=== PATIENT | male | born 1955 | race Caucasian/White ===

== ENCOUNTER 2016-09-16 09:49 | Emergency (ER) | payer BC ==
[~2016-09-16] VITALS: Ht 188 cm; Wt 113.6 kg
[~2016-09-16 09:49] MED LIST: ADVIL200 MG PO; ANTIVERT 25MG25 MG PO; ASPIRIN 32325 MG/TAB PO; CIPRO 500MG TA500 MG PO; COMPAZINE 110 MG/TAB PO; COUGH DROPS PO; DIABETA 5MG5 MG/TAB PO; FLONASE NASAL S16 GM NS; FORT1000TA PO; GLUCOPHAGE XR500 M1 PO; LANTUS100 U/ML; LEVEMIR FLEXPEN SQ; LEVEMIR100 U/ML SQ; LYRICA 50MG CAP50 MG PO; NEURONTIN100 MG/CAP PO; NOVOLOG 100U100 U/M1 SQ; PLAVIX 75MG TAB75 MG PO; PLETAL 100MG T100 MG PO; SEPTRA DS 8001 TAB PO; TUMS500 MG PO; ZESTRIL 10MG10 MG PO; ZOCOR 40MG40 MG PO; [UNRECOGNIZED DRUG - REMARK] PO
[2016-09-16 09:52] VITALS: TEMP 98.5
[2016-09-16] MEDS ORDERED: NORCO 325 MG-51 TAB PO (11:00)
[2016-09-16 11:18] VITALS: BP 162/81; PULSE 67
[2016-09-17] MEDS ORDERED: ASPIRIN 81M81 MG/TA2 PO (01:24)
[2016-09-17] MEDS ORDERED: CARDENE 20MG CA20 M1 PO (01:24)
[2016-09-17] MEDS ORDERED: TRESIBA FL200 UNIT/1 SQ (01:26)
[2016-09-17] MEDS ORDERED: FLOMAX 0.40.4 MG/CAP PO (01:26)
[2016-09-17] MEDS ORDERED: FLEXERIL 1010 MG/TAB PO (01:27)
[2016-09-17] MEDS ORDERED: AMOXICILLIN 8751 TAB PO (01:28)
== END 2016-09-16 11:28 | disposition home or self-care (01) ==
LOC: COL.ER 09:49
DX: R07.81 Pleurodynia (principal)

== ENCOUNTER 2016-09-17 00:09 | Emergency (ER) | payer BC ==
[~2016-09-17] VITALS: Ht 188 cm; Wt 113.6 kg
[~2016-09-17 00:09] MED LIST changes: +NORCO 325 MG-51 TAB PO
[2016-09-17 00:14] VITALS: TEMP 97.9
[2016-09-17 01:16] LABS: BASO # 0.1 (0.0-0.2); BASO % 0.6 % (0.0-2.0); EOS # 0.2 (0.0-0.7); EOS % 1.5 % (0-4.0); GRAN # 9.5 (1.4-6.5); GRAN % 79.8 % (42.2-75.2); HEMATOCRIT 41.7 % (42.0-52.0); HEMOGLOBIN 14.2 g/dl (13.5-18.0); LYMPH # 1.3 (1.2-3.4); LYMPH % 11.1 % (20.0-51.0); MEAN CELL VOLUME 87 fl (80.0-100.0); MEAN CORPUSCULAR HEMOGLOBIN 30 pg (27.0-31.0); MEAN CORPUSCULAR HGB CONC 34 g/dl (33.0-37.0); MEAN PLATELET VOLUME 9.5 fl (7.4-10.4); MONO # 0.8 (0.1-0.6); MONO % 6.7 % (1.7-9.3); PLATELET COUNT 345 K/mm3 (130-400); RED BLOOD COUNT 4.82 M/mm3 (4.20-5.60); REDCELL DISTRIBUTION WIDTH-CV 13.6 % (11.5-14.5); WHITE BLOOD COUNT 11.8 K/mm3 (4.8-10.8)
[2016-09-17] MEDS ORDERED: CARDENE 20MG CA20 M1 PO (01:24)
[2016-09-17] MEDS ORDERED: ASPIRIN 81M81 MG/TA2 PO (01:24)
[2016-09-17] MEDS ORDERED: TRESIBA FL200 UNIT/1 SQ (01:26)
[2016-09-17] MEDS ORDERED: FLOMAX 0.40.4 MG/CAP PO (01:26)
[2016-09-17] MEDS ORDERED: FLEXERIL 1010 MG/TAB PO (01:27)
[2016-09-17] MEDS ORDERED: AMOXICILLIN 8751 TAB PO (01:28)
[2016-09-17 01:29] LABS: ADJUSTED CALCIUM 9.7 mg/dL (8.4-10.2); ALANINE AMINOTRANSFERASE 47 U/L (21-72); ALBUMIN 4.4 gm/dL (3.5-5.0); ALKALINE PHOSPHATASE 82 U/L (50-136); ANION GAP 14 mmol/L (7-16); BILIRUBIN,TOTAL 0.7 mg/dL (0.0-1.0); BLOOD UREA NITROGEN 22 mg/dL (9-20); CARBON DIOXIDE 28 mmol/L (22-30); CHLORIDE 98 mmol/L (98-107); CREATININE, serum 0.94 mg/dL (0.66-1.25); GLUCOSE 85 mg/dL (74-106); POTASSIUM 4.1 mmol/L (3.4-5.0); SODIUM 139 mmol/L (137-145)
[2016-09-17 01:41] LABS: TROPONIN-I < 0.012 ng/mL (0.000-0.034)
[2016-09-17 02:23] VITALS: BP 119/73; PULSE 98
== END 2016-09-17 02:23 | disposition home or self-care (01) ==
LOC: COL.ER 00:09
PROVIDERS: Emergency Medicine
DX: S29.011A Strain of muscle and tendon of front wall of thorax, initial encounter (principal); X58.XXXA Exposure to other specified factors, initial encounter; I10 Essential (primary) hypertension; Z79.02 Long term (current) use of antithrombotics/antiplatelets; E10.9 Type 1 diabetes mellitus without complications; Z79.4 Long term (current) use of insulin
CPT/HCPCS: J1885

== ENCOUNTER → 2017-05-09 | Outpatient (CLI) | payer BC ==
[~2017-05-09] MED LIST changes: +AMOXICILLIN 8751 TAB PO; +ASPIRIN 81M81 MG/TA2 PO; +CARDENE 20MG CA20 M1 PO; +DOXYCYCLINE 10100 MG PO; +FLEXERIL 1010 MG/TAB PO; +FLOMAX 0.40.4 MG/CAP PO; +TRESIBA FL200 UNIT/1 SQ; +ULTRAM 50MG TAB50 MG PO
== END ==
LOC: COL.VAS 08:00
DX: R60.0 Localized edema (principal)

== ENCOUNTER 2017-09-08 19:53 | Emergency (ER) | payer BC ==
[~2017-09-08] VITALS: Ht 188 cm; Wt 113.6 kg
[~2017-09-08 19:53] MED LIST changes: -DOXYCYCLINE 10100 MG PO; -ULTRAM 50MG TAB50 MG PO
[2017-09-08 19:58] VITALS: TEMP 99.1
[2017-09-08 20:52] LABS: BASO # 0.1 (0.0-0.2); BASO % 0.8 % (0.0-2.0); EOS # 0.1 (0.0-0.7); EOS % 1.8 % (0-4.0); GRAN # 5.3 (1.4-6.5); GRAN % 68.2 % (42.2-75.2); HEMOGLOBIN 13.4 g/dl (13.5-18.0); LYMPH # 1.5 (1.2-3.4); LYMPH % 18.6 % (20.0-51.0); MEAN CELL VOLUME 88 fl (80.0-100.0); MEAN CORPUSCULAR HEMOGLOBIN 30 pg (27.0-31.0); MEAN CORPUSCULAR HGB CONC 34 g/dl (33.0-37.0); MEAN PLATELET VOLUME 9.8 fl (7.4-10.4); MONO # 0.8 (0.1-0.6); MONO % 10.3 % (1.7-9.3); PLATELET COUNT 283 K/mm3 (130-400); RED BLOOD COUNT 4.53 M/mm3 (4.20-5.60); REDCELL DISTRIBUTION WIDTH-CV 13.5 % (11.5-14.5)
[2017-09-08 20:58] LABS: C-REACTIVE PROTEIN 1.1 mg/dL (0.0-0.9); CALCIUM 9.7 mg/dL (8.4-10.2); CREATININE, serum 0.92 mg/dL (0.66-1.25); POTASSIUM 4.1 mmol/L (3.4-5.0)
[2017-09-08] MEDS ORDERED: DOXYCYCLINE 10100 MG PO (21:24)
[2017-09-08] MEDS ORDERED: ULTRAM 50MG TAB50 MG PO (21:24)
[2017-09-08 21:47] VITALS: BP 130/84; PULSE 88
== END 2017-09-08 21:47 | disposition home or self-care (01) ==
LOC: COL.ER 19:53
PROVIDERS: Emergency Medicine
DX: E11.621 Type 2 diabetes mellitus with foot ulcer (principal); Z79.82 Long term (current) use of aspirin; Z79.4 Long term (current) use of insulin; Z79.02 Long term (current) use of antithrombotics/antiplatelets

== ENCOUNTER 2019-10-01 11:40 | Emergency (ER) | payer BC ==
[~2019-10-01] VITALS: Ht 188 cm; Wt 118.2 kg
[~2019-10-01 11:40] MED LIST changes: +DOXYCYCLINE 10100 MG PO; +ULTRAM 50MG TAB50 MG PO
[2019-10-01] MEDS ORDERED: OZEMPIC1 MG/0.75 SQ (12:19)
[2019-10-01 14:00] VITALS: BP 130/60; PULSE 80; TEMP 98
== END 2019-10-01 14:11 | disposition home or self-care (01) ==
LOC: COL.ER 11:40
DX: M25.571 Pain in right ankle and joints of right foot (principal); E11.40 Type 2 diabetes mellitus with diabetic neuropathy, unspecified; Z79.4 Long term (current) use of insulin; Z79.02 Long term (current) use of antithrombotics/antiplatelets

== ENCOUNTER 2020-05-11 20:32 | Emergency (ER) | payer BC ==
[~2020-05-11] VITALS: Ht 188 cm; Wt 115.9 kg
[~2020-05-11 20:32] MED LIST changes: +OZEMPIC1 MG/0.75 SQ
[2020-05-11 20:35] VITALS: BP 133/80
[2020-05-11] MEDS ORDERED: ROBAXIN 50500 MG/TAB PO (20:54)
[2020-05-11] MEDS ORDERED: LASIX 20MG TABL20 MG PO (20:55)
[2020-05-11 21:04] LABS: COLLECTION METHOD CLEAN CATCH
[2020-05-11 21:12] LABS: MUCOUS Present /lpf; PH 6 (5-8); SQUAMOUS EPITHELIAL 0-2 /hpf; URINE APPEARANCE Clear; URINE BACTERIA Rare /hpf; URINE BILIRUBIN Negative (NEGATIVE); URINE BLOOD Negative (NEGATIVE); URINE COLOR Yellow; URINE GLUCOSE 2+ (NEGATIVE); URINE KETONE Negative (NEGATIVE); URINE LEUKOCYTE ESTERASE Negative (NEGATIVE); URINE NITRATE Negative (NEGATIVE); URINE PROTEIN(semi-quant) Negative (NEGATIVE); URINE RBC 0-2 /hpf; URINE UROBILINOGEN Negative (NEGATIVE)
[2020-05-11] MEDS ORDERED: NORCO 325 MG-51 TAB PO (21:21)
[2020-05-11 21:50] VITALS: PULSE 72; TEMP 97.4
== END 2020-05-11 21:55 | disposition home or self-care (01) ==
LOC: COL.ER 20:32
PROVIDERS: Physician Assistant
DX: S39.012A Strain of muscle, fascia and tendon of lower back, initial encounter (principal); E11.9 Type 2 diabetes mellitus without complications; N40.0 Benign prostatic hyperplasia without lower urinary tract symptoms; I10 Essential (primary) hypertension; F17.200 Nicotine dependence, unspecified, uncomplicated; Z79.01 Long term (current) use of anticoagulants; Z79.4 Long term (current) use of insulin; Z79.82 Long term (current) use of aspirin

== ENCOUNTER → 2022-02-12 | Outpatient (CLI) | payer MEDICARE ==
[~2022-02-12] MED LIST changes: +LASIX 20MG TABL20 MG PO; +ROBAXIN 50500 MG/TAB PO
== END ==
LOC: COL.RAD 07:04
DX: Z13.6 Encounter for screening for cardiovascular disorders (principal); I25.10 Atherosclerotic heart disease of native coronary artery without angina pectoris; Z87.891 Personal history of nicotine dependence